=== PATIENT | male | born 1970 | race Hispanic/Latino ===

== ENCOUNTER 2019-03-24 21:06 | Emergency (ER) | payer OTHER ==
[~2019-03-24] VITALS: Ht 165.1 cm; Wt 90.0 kg
[2019-03-24] MEDS ORDERED: AMOXICILLIN500 MG PO (22:43)
[2019-03-24] MEDS ORDERED: MOTRIN800 MG PO (22:43)
[2019-03-24] MEDS ORDERED: TRAMADOL HCL50 MG PO (22:43)
[2019-03-24 23:00] VITALS: BP 146/84
== END 2019-03-24 23:00 | disposition home or self-care (01) | DRG 159 ==
LOC: ED 21:06
DX: K04.7 Periapical abscess without sinus (principal); K02.9 Dental caries, unspecified; E11.9 Type 2 diabetes mellitus without complications